=== PATIENT | male | born 1975 | race African-American/Black ===

== ENCOUNTER 2018-10-26 02:05 | Emergency (ER) | payer MEDICAID ==
[~2018-10-26] VITALS: Ht 177.8 cm; Wt 70.0 kg
[~2018-10-26 02:05] MED LIST: BACTRIM; MOTRIN
[2018-10-26 02:40] VITALS: BP 118/66
== END 2018-10-26 05:49 | disposition left against medical advice (07) ==
LOC: ER 02:05
DX: Z53.21 Procedure and treatment not carried out due to patient leaving prior to being seen by health care provider (principal)

== ENCOUNTER 2021-09-02 21:32 | Emergency (ER) | payer MEDICAID ==
[~2021-09-02] VITALS: Ht 177.8 cm; Wt 72.8 kg
[2021-09-02 22:02] VITALS: BP 143/86
== END 2021-09-03 00:42 | disposition left against medical advice (07) ==
LOC: ER 21:32
DX: Z53.21 Procedure and treatment not carried out due to patient leaving prior to being seen by health care provider (principal)
CPT/HCPCS: 93005

== ENCOUNTER 2023-04-11 14:38 | Emergency (ER) | payer MEDICAID, OTHER ==
[~2023-04-11] VITALS: Ht 177.8 cm; Wt 75.0 kg
[2023-04-11 16:25] VITALS: BP 120/73; PULSE 68; RESP 16; TEMP 98
== END 2023-04-11 16:31 | disposition home or self-care (01) ==
LOC: ER 14:38
DX: R51.9 Headache, unspecified (principal); M25.512 Pain in left shoulder; F12.90 Cannabis use, unspecified, uncomplicated
CPT/HCPCS: 99281

== ENCOUNTER 2023-06-29 06:57 | Emergency (ER) | payer OTHER ==
[~2023-06-29] VITALS: Ht 177.8 cm; Wt 75.0 kg
[2023-06-29 07:01] VITALS: O2SAT 98
[2023-06-29] MEDS ORDERED: METH-653 MT (09:22)
[2023-06-29] MEDS: KETOROLAC 30MG/ML VIAL IM ONE (09:57)
[2023-06-29] MEDS: DIAZEPAM 2 MG TABLET PO ONE (10:14)
[2023-06-29 10:48] VITALS: BP 145/92; PULSE 78; RESP 18; TEMP 98.3
== END 2023-06-29 10:52 | disposition home or self-care (01) ==
LOC: ER 06:57
DX: S16.1XXA Strain of muscle, fascia and tendon at neck level, initial encounter (principal); F12.10 Cannabis abuse, uncomplicated; W18.30XA Fall on same level, unspecified, initial encounter; Y93.89 Activity, other specified; Y92.89 Other specified places as the place of occurrence of the external cause; Y99.8 Other external cause status
CPT/HCPCS: 99283; 96372; J1885